=== PATIENT | female | born 1955 | race Caucasian/White ===

== ENCOUNTER → 2020-04-30 13:23 | Outpatient (CLI) | payer MEDICARE, OTHER, SELFPAY ==
--- NOTE | 2020-04-30 | DI.MRI.S_ITS ---
PROCEDURE: MR HIP LT WO CON INDICATIONS: Broken internal left hip prosthesis TECHNIQUE: Noncontrast coronal T1 spin echo and STIR through the bony pelvis. Coronal and axial T2 fast spin echo with fat saturation, sagittal T1 spin echo, and oblique axial T2 fast spin echo with fat saturation through the hip. COMPARISON: [facility] Outside Film, CR, XR PELVIS WITH LATERAL HIP LEFT, 03/27/2020, 11:51. FINDINGS: Image quality: Diagnostic. Bones and joints: Patient is status post left total hip arthroplasty with significant susceptibility artifacts in the region. No definite fracture is seen. No gross marrow edema. 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 Tendons and ligaments: The gluteus medius and minimus tendinosis at their insertion on the greater trochanter is seen, without associated muscle atrophy. The nearby proximal iliotibial band also appears intact. The iliopsoas tendon appears intact, without adjacent bursal fluid collections or evidence for impingement syndrome. The origin of the hamstring tendon is intact at the ischial tuberosity, as well as the associated sacrotuberous ligament. The straight and reflected heads of the rectus femoris muscle origin appear intact, as well as the conjoint tendon. The ligamentum teres appears intact where visualized. Soft tissues: Visualized muscles demonstrate normal bulk and internal signal. Quadratus femoris muscle demonstrates no internal edema to suggest ischiofemoral impingement. The proximal sciatic neurovascular bundle appears normal adjacent to the hamstring tendons. No free pelvic fluid. Bladder wall thickness is normal. Genitourinary structures and bowel loops appear normal where visualized. IMPRESSION: 1. Prior left total hip arthroplasty. Significant susceptibility artifact are seen. No gross marrow edema. No evidence of periprosthetic fracture. No hip dislocation. 2. Tendinosis involving left gluteus medius and minimus tendons at their insertions on greater trochanter. No other muscle or tendon signal abnormality. Dictated by: Ricardo Ramirez M.D. on 04/30/2020 at 16:11 Approved by: Ricardo Ramirez M.D. on 04/30/2020 at 16:29
== END ==
PROVIDERS: Family Provider Family Medicine; Referring Provider Orthopaedic Surgery Adult Reconstructive Orthopaedic Surgery; Visit Provider Orthopaedic Surgery Adult Reconstructive Orthopaedic Surgery
DX: T84.011A Broken internal left hip prosthesis, initial encounter (principal); M16.11 Unilateral primary osteoarthritis, right hip
CPT/HCPCS: 73721

== ENCOUNTER 2021-12-16 12:03 | Emergency (ER) | payer MEDICARE, OTHER, SELFPAY ==
[2021-12-16 12:21] VITALS: BP 171/70; PULSE 65; RESP 18; TEMP 36.4; O2SAT 97
[2021-12-16 14:16] VITALS: BP 132/62; PULSE 70; RESP 16; O2SAT 99
--- NOTE | 2021-12-17 20:22 | ED.EPISTAXIS ---
HPI - Epistaxis <Kaden Canales PA-C - Last Filed: 12/17/21 20:28> General Chief complaint: Nasal Problem Stated complaint: Bloody noses 2x a day for 2 weeks Time Seen by Provider: 12/16/21 14:05 Source: patient Mode of arrival: Ambulatory History of Present Illness HPI Narrative: 66-year-old female presents to the ED with intermittent epistaxis for 2 weeks. Patient does not have a nose bleed when presenting to the ED. patient states she came into the ED since she has a plane trip planned for tomorrow and wanted to see if anything needed to be done for it. Patient reports having intermittent nosebleeds that are easily controllable with pressure over the last 2 weeks. Patient denies fever, chills, chest pain, shortness of breath, cough, lightheadedness, dizziness, syncope, nausea, vomiting, abdominal pain, trouble swallowing. Related Data Home Medications Medication Instructions Recorded Confirmed POLYETHYLENE GLYCOL 3350 17 gm PO #0 08/19/16 fluticasone propionate 50 1 spray INTRANASAL QDAY #0 08/19/16 mcg/actuation nasal spray,suspension (Flonase Allergy Relief) black cohosh root extract 40 mg #0 05/06/17 capsule cholecalciferol (vitamin D3) 25 #0 05/06/17 mcg (1,000 unit) tablet (Vitamin D3) fluoxetine 20 mg capsule #0 05/06/17 gabapentin 600 mg tablet 300 mg #0 05/06/17 (Neurontin) loratadine 10 mg capsule (Claritin PRN #0 05/06/17 Liqui-Gel) meclizine 25 mg tablet #0 05/06/17 multivitamin (Multiple Vitamins) #0 05/06/17 ondansetron 8 mg disintegrating #0 05/06/17 tablet pantoprazole 40 mg tablet,delayed QDAY #0 05/06/17 release polyethylene glycol 3350 17 gram #0 05/06/17 oral powder packet (Miralax) zolpidem 5 mg tablet #0 05/06/17 Allergies Allergy/AdvReac Type Severity Reaction Status Date / Time erythromycin base Allergy Intermediate Verified 12/16/21 12:25 [ERYTHROMYCIN BASE] IV CONTRAST Allergy Intermediate Uncoded 01/27/18 12:15 Review of Systems <Kaden Canales PA-C - Last Filed: 12/17/21 20:28> Review of Systems ROS Unobtainable: All systems reviewed & are unremarkable except as noted in HPI and below Constitutional Constitutional: Denies chills, Denies fatigue, Denies fever(s), Denies frequent falls, Denies lethargy and Denies weakness Eyes Eyes: Denies change in vision, Denies eye discharge, Denies irritation and Denies loss of vision ENT Ears, Nose, Mouth, and Throat: Denies change in voice, Denies dizziness, Denies neck pain, Denies sore throat and Denies throat swelling Comments: Intermittent epistaxis Cardiovascular Cardiovascular: Denies chest pain, Denies irregular heart rhythm, Denies lightheadedness, Denies palpitations, Denies dyspnea, Denies dyspnea on exertion and Denies orthopnea Respiratory Respiratory: Denies cough, Denies dyspnea, Denies dyspnea on exertion and Denies wheezing Gastrointestinal Gastrointestinal: Denies abdominal pain, Denies change in bowel habits, Denies diarrhea, Denies nausea and Denies vomiting Genitourinary Genitourinary: Denies hematuria, Denies flank pain, Denies urinary incontinence and Denies urinary urgency Musculoskeletal Musculoskeletal: Denies back pain, Denies muscle weakness, Denies neck pain, Denies numbness and Denies tingling Integumentary/Breasts Skin/Breast: Denies pruritus, Denies erythema, Denies rash and Denies wounds Neurologic Neurologic: Denies behavioral changes, Denies confusion, Denies dizziness, Denies frequent falls, Denies loss of vision, Denies numbness, Denies tingling and Denies weakness Psychiatric Psychiatric: Denies anxiety, Denies behavioral changes, Denies confusion, Denies depression, Denies homicidal ideation and Denies suicidal ideation Endocrine Endocrine: Denies fatigue, Denies flushing and Denies palpitations Hematologic/Lymphatic Hematologic/Lymphatic: Denies easy bruising Allergic/Immunologic Allergic/Immunologic: Denies urticaria, Denies throat swelling and Denies wheezing Patient History <Kaden Canales PA-C - Last Filed: 12/17/21 20:28> Surgical History History of hip replacement History of knee replacement History of knee replacement History of tonsillectomy Status post cholecystectomy Status post hysterectomy Status post rotator cuff repair Status post rotator cuff repair Family History Brother Age: 75 Hypertension Father Heart disease Grandfather Heart disease Mother Age: 97 Hypertension Stroke Grandmother Heart disease Sister Age: 70 Breast cancer Heart disease Social History Smoking Status: Never smoker Smoking Status: Never smoker alcohol intake frequency: 0-2 drinks per day Substance Use Type: does not use Exam <Kaden Canales PA-C - Last Filed: 12/17/21 20:28> Initial Vital Signs Initial Vital Signs: Vital Signs Temperature 97.5 F L 12/16/21 12:21 Pulse Rate 65 12/16/21 12:21 Respiratory Rate 18 12/16/21 12:21 Blood Pressure 171/70 H 12/16/21 12:21 Pulse Oximetry 97 12/16/21 12:21 Const General: cooperative, healthy appearing and comfortable HENMT Head: normal to inspection Ears: hearing grossly normal bilaterally Nose: external nose normal, nares normal, nasal mucous membranes and turbinates normal, septum normal and No epistaxis Face and sinus: normal facial exam Mouth: oral mucosae normal Throat: posterior oropharynx normal Eyes General: appearance normal, both eyes and all related structures Resp Effort & Inspection: normal respiratory effort Auscultation: clear to auscultation bilaterally Cardio Rate: regular rate Rhythm: regular rhythm Skin General: no rashes or lesions noted Neuro General: patient alert, patient awake and patient oriented x3 Psych Appearance: grossly normal Mental Status: mental status grossly normal <Michelle Burris DO - Last Filed: 12/20/21 19:12> Initial Vital Signs Initial Vital Signs: Vital Signs Temperature 97.5 F L 12/16/21 12:21 Pulse Rate 65 12/16/21 12:21 Respiratory Rate 18 12/16/21 12:21 Blood Pressure 171/70 H 12/16/21 12:21 Pulse Oximetry 97 12/16/21 12:21 MDM - Epistaxis <Kaden Canales PA-C - Last Filed: 12/17/21 20:28> MDM Narrative Medical decision making narrative: 66-year-old female presents to the ED with intermittent epistaxis for 2 weeks. Given no active epistaxis, no septal hematoma, will discharge patient home with ED return precautions. Patient can use Afrin intranasally in the event of a nose bleed, along with pressure. Patient verbalized understanding. Discharge Plan Departure Patient Disposition: Home Clinical Impression: Epistaxis Instructions: DI for Nosebleed Activity Restrictions/Additional Instructions: You were seen in the ED for nose bleeds today. You did not have an active nosebleed during the ED visit. You may use is court of Afrin if you have a repeat bleed, followed by pinching the nose to keep pressure. Return to the ED if you have an uncontrollable nose bleed, lightheadedness, dizziness, trouble swallowing, trouble breathing. Please follow-up with your PCP as soon as possible. Prescriptions: No Action fluticasone propionate [Flonase Allergy Relief] 9.9 ML spray,suspension 1 spray Intranasal QDAY Qty: 0 0RF POLYETHYLENE GLYCOL 3350 17 gm PO Qty: 0 0RF gabapentin [Neurontin] 600 MG tablet 300 mg Qty: 0 0RF meclizine 25 MG tablet Qty: 0 0RF pantoprazole 40 MG tablet,delayed release (DR/EC) QDAY Qty: 0 0RF loratadine [Claritin Liqui-Gel] 10 MG capsule PRN Qty: 0 0RF multivitamin [Multiple Vitamins] 1 EACH tablet Qty: 0 0RF ondansetron 8 MG tablet,disintegrating Qty: 0 0RF black cohosh root extract 40 MG capsule Qty: 0 0RF fluoxetine 20 MG capsule Qty: 0 0RF polyethylene glycol 3350 [Miralax] 17 GM powder in packet Qty: 0 0RF zolpidem 5 MG tablet Qty: 0 0RF cholecalciferol (vitamin D3) [Vitamin D3] 1,000 UNIT tablet Qty: 0 0RF Referrals: Genevieve Rowan MD [Primary Care Provider] - <Michelle Burris DO - Last Filed: 12/20/21 19:12> Cosign ED Attending Sharonature Attestation: I was immediately available in the department for consultation. Documentation has been reviewed.
== END 2021-12-16 15:02 | disposition home or self-care (01) ==
PROVIDERS: Emergency Provider Student in an Organized Health Care Education/Training Program; Family Provider Family Medicine; PCP Student in an Organized Health Care Education/Training Program
DX: R04.0 Epistaxis (principal)
CPT/HCPCS: 99281

== ENCOUNTER → 2022-07-04 13:47 | Outpatient (CLI) | payer MEDICARE, OTHER, SELFPAY ==
--- NOTE | 2022-07-04 13:48 | DI.US.S_ITS ---
PROCEDURE: US RENAL COMPLETE INDICATIONS: Laterally displaced ureteral orifice rule out reflux TECHNIQUE: Real-time scanning was performed of the kidneys and bladder, with image documentation. COMPARISON: None. FINDINGS: Kidneys: Kidneys are normal in size. Right kidney measures 10.6 cm long; left kidney measures 10.5 cm long. Right renal cortical thickness is 1.3 cm; left renal cortical thickness is 1.2 cm. Renal cortical echotexture is normal. No hydronephrosis or nephrolithiasis. No suspicious solid mass lesions. Bladder: Pre-void bladder volume is 164 mL. Post-void residual is 10 mL. Pre-void images demonstrate no intraluminal masses or stones. On pre-void images, bilateral ureteral jets are noted with color Doppler interrogation. (Of note, ureteral jets may not be detectable in up to 25% of cases due to insufficient differences in specific gravity between ureteral and bladder urine). Miscellaneous: No free pelvic fluid. IMPRESSION: Normal bilateral renal ultrasound. No hydronephrosis. Approved by: Cornell Morris M.D. on 07/04/2022 at 17:13
== END ==
PROVIDERS: Family Provider Family Medicine; PCP Internal Medicine; Referring Provider Urology; Visit Provider Urology
DX: Q62.62 Displacement of ureter (principal); R33.9 Retention of urine, unspecified; Z87.440 Personal history of urinary (tract) infections
CPT/HCPCS: 76770

== ENCOUNTER → 2022-07-07 09:28 | Outpatient (CLI) | payer MEDICARE, OTHER, SELFPAY ==
--- NOTE | 2022-07-07 09:28 | DI.RAD.S_ITS ---
PROCEDURE: FL CYSTOGRAM INDICATIONS: Laterally displaced ureteral orifice rule out reflux COMPARISON: None. FINDINGS: KUB: Preprocedural oil scout film demonstrates a normal bowel gas pattern. A Luke catheter is present. No suspicious abdominal calcifications. Left hip arthroplasty is present. Bladder: The filled bladder appears normal in contour. No filling defects or significant trabeculations. No vesicoureteral reflux or contrast extravasation. Postvoid: No significant postvoid residual. IMPRESSION: No evidence of ureteral reflux. Dictated by: Jesus Peraza M.D. on 07/07/2022 at 11:28 Approved by: Jesus Peraza M.D. on 07/07/2022 at 11:29
== END ==
PROVIDERS: Family Provider Family Medicine; PCP Internal Medicine; Referring Provider Urology; Visit Provider Urology
DX: Q62.62 Displacement of ureter (principal)
CPT/HCPCS: 74430

== ENCOUNTER → 2025-03-09 15:42 | Outpatient (CLI) | payer MEDICARE, OTHER, SELFPAY ==
--- NOTE | 2025-03-09 15:45 | DI.MRI.S_ITS ---
PROCEDURE: MR HIP LT WO CON INDICATIONS: r/o pseudotumor - left TECHNIQUE: Noncontrast coronal T1 spin echo and STIR through the bony pelvis. Coronal and axial T2 fast spin echo with fat saturation, sagittal T1 spin echo, and oblique axial T2 fast spin echo with fat saturation through the hip. COMPARISON: None. FINDINGS: Image quality: Limited Bones and joints: Patient is status post left total hip arthroplasty with significant susceptibility artifacts limits evaluation of left mariah pelvic osseous structures. No obvious marrow edema. No acute periprosthetic fracture. No suspicious bony lesions. [id number] right hip joint osteoarthritic changes are seen. Degenerative disc disease in visualized lower lumbar spine is noted. Tendons and ligaments: Mild distal left gluteus medius and minimus tendinosis at their insertions on greater trochanter is seen. The nearby proximal iliotibial band also appears intact. Distal iliopsoas tendon is not seen due to susceptibility artifacts. No gross bursal fluid collection. The origin of the hamstring tendon is intact at the ischial tuberosity. Labrum and cartilage: Not applicable. Soft tissues: Visualized muscles demonstrate normal bulk and internal signal. No evidence of pseudotumor formation. No soft tissue mass or drainable fluid collection. The proximal sciatic neurovascular bundle appears normal adjacent to the hamstring tendons. No free pelvic fluid. Bladder wall thickness is normal. Genitourinary structures and bowel loops appear normal where visualized. IMPRESSION: 1. Patient is status post left total hip arthroplasty. Left hip alignment is anatomic. Significant susceptibility artifacts are noted slightly limited evaluation of adjacent structures. No gross marrow edema. No acute fracture or dislocation. Osteoarthritic changes in right hip joint without avascular necrosis of femoral head. Degenerative disc disease in visualized lower lumbar spine. 2. There is no soft tissue mass or fluid collection seen in left hemipelvis. No evidence of pseudotumor formation. 3. Mild distal left gluteus medius and minimus tendinosis. No other muscle or tendon signal abnormalities. Dictated by: Ricardo Ramirez M.D. on 03/12/2025 at 1:37 Approved by: Ricardo Ramirez M.D. on 03/12/2025 at 1:47
== END ==
PROVIDERS: Family Provider Family Medicine; PCP Internal Medicine; Referring Provider Orthopaedic Surgery; Visit Provider Orthopaedic Surgery
DX: M51.369 Other intervertebral disc degeneration, lumbar region without mention of lumbar back pain or lower extremity pain (principal); Z96.642 Presence of left artificial hip joint
CPT/HCPCS: 73721